=== PATIENT | female | born 1970 | race Caucasian/White ===

== ENCOUNTER → 2016-12-12 | Outpatient (CLI) | payer OTHER ==
--- NOTE | 2016-12-12 12:33 | KCIC ---
Bilateral digital screening mammograms: Reason for examination: Routine screening. Comparison is made to previous studies dated 11/18/2015 and 10/28/2014. The skin and nipples show no abnormalities. No abnormal axillary lymph nodes are seen. The breast parenchyma is heterogeneously dense. (Breast density: Category C.) There has been some parenchymal involution. There are no dominant masses, suspicious calcifications or architectural distortion. Impression: No evidence of malignancy. Recommend routine screening. Your patient's mammogram demonstrates that she has dense breast tissue (breast density category C or D), which could hide abnormalities, and if she has other risk factors for breast cancer that have been identified, she might benefit from supplemental screening tests that may be suggested by you as her ordering physician. Dense breast tissue, in and of itself, is a relatively common condition. Therefore, this information is not provided to cause undue concern, but rather to raise your awareness and to promote discussion with your patient regarding the presence of other risk factors, in addition to dense breast tissue. Your patient's mammography results will be sent to her. BI-RAD Category 1: Negative. "Our facility is accredited by the [employer] Mammography [employer]." This patient's information has been entered into a reminder system for the patient to be notified with the results of her examination and a target date for the next mammogram. Electronically signed by: Cat Mims MD (12/12/2016 12:29 PM)
== END | disposition home or self-care (01) ==
LOC: KCIC MAMMO 10:22
PROVIDERS: ATTEND Specialist
DX: Z12.31 Encounter for screening mammogram for malignant neoplasm of breast (principal)
CPT/HCPCS: G0202; 77067

== ENCOUNTER → 2018-02-05 | Outpatient (CLI) | payer OTHER ==
--- NOTE | 2018-02-05 13:13 | KCIC ---
Bilateral digital screening mammograms: Reason for examination: Routine screening. Comparison is made to previous studies dated 12/12/2016 and 11/18/2015. Interpretation was made with the benefit of CAD. The skin and nipples show no abnormalities. No abnormal axillary lymph nodes are seen. The breast parenchyma shows scattered fibroglandular density. (Breast density: Category B.) There is a new nodular density present posterior superiorly in the left breast on oblique view probably at the 2:00 C position measuring 5.8 mm in greatest dimension. Recommend further evaluation with coned compression views and ultrasound. There are no other dominant masses, suspicious calcifications or architectural distortions. Impression: Small 5.8 mm nodule present posterior superiorly in the left breast probably at the 2:00 C position. Recommend further evaluation with coned compression views and ultrasound. BI-RADS Category 0: Incomplete. Needs additional imaging evaluation. "Our facility is accredited by the [employer] Mammography [employer]." This patient's information has been entered into a reminder system for the patient to be notified with the results of her examination and a target date for the next mammogram. Electronically signed by: Cat Mims MD (02/05/2018 1:10 PM) [id number]
== END | disposition home or self-care (01) ==
LOC: KCIC MAMMO 08:21
PROVIDERS: ATTEND Specialist
DX: Z12.31 Encounter for screening mammogram for malignant neoplasm of breast (principal)
CPT/HCPCS: 77067

== ENCOUNTER → 2018-02-14 | Outpatient (CLI) | payer OTHER ==
--- NOTE | 2018-02-14 20:12 | KCIC ---
Left breast diagnostic digital mammograms: Reason for examination: Nodularity on screening mammogram. Comparison is made to mammographic exam dated 02/05/2018. Coned compression views were obtained in CC and oblique projections. With these additional views, there is still some subtle nodularity present at approximately the 2:00 position. Further evaluation with ultrasound will follow. IMPRESSION: Nodularity appears to persist at the 2:00 position. Ultrasound to follow. BI-RADS Category 0: Incomplete. Needs additional imaging evaluation. Left breast ultrasound: Ultrasound examination was performed in the area of mammographic concern and at the left axilla. In the 2:00 position 6 cm from the nipple, there is a small 7.3 x 5.3 mm fibrocystic lesion. In the 12:00 position 2 cm from the nipple, there is a 7.3 x 6.9 mm cyst. No solid suspicious-appearing lesions are seen. No abnormal appearing lymph nodes are seen in the axilla. IMPRESSION: Benign appearing fibrocystic lesion at the 2:00 position. Small cyst at the 12:00 position. No suspicious abnormality seen. Recommend 6 month sonographic follow-up. BI-RADS Category 3: Probably Benign. "Our facility is accredited by the [employer] Mamm[employer]." This patient's information has been entered into a reminder system for the patient to be notified with the results of her examination and a target date for the next mammogram. Electronically signed by: Cat Mims MD (02/14/2018 8:09 PM) [facility]
== END | disposition home or self-care (01) ==
LOC: KCIC MAMMO 12:45
PROVIDERS: ATTEND Specialist
DX: R92.8 Other abnormal and inconclusive findings on diagnostic imaging of breast (principal)
CPT/HCPCS: 76641; 77065

== ENCOUNTER → 2018-08-16 | Outpatient (CLI) | payer OTHER ==
--- NOTE | 2018-08-16 11:54 | KCIC ---
Left breast ultrasound: Reason for examination: Follow-up nodules. Comparison is made to previous study dated 02/14/2018. Ultrasound examination was performed in the areas of previous concern and axilla. There continues to be a 6 mm fibrocystic lesion at the 2:00 position 6 cm from the nipple which has shown a decrease in size. There continues to be a cyst at the 12:00 position 2 cm in size measuring 9 mm greatest dimension which is increased in size. No suspicious nodules are seen. No abnormal appearing lymph nodes are seen in the axilla. IMPRESSION: Decrease in size of the fibrocystic lesion at the 2:00 position. Mild increase in size of the cyst at the 12:00 position now measuring 9 mm in size. No suspicious-appearing lesion seen. Recommend reevaluation in 6 months at the time of bilateral mammograms. BI-RADS Category 3: Probably Benign. "Our facility is accredited by the [employer] Mammography [employer]." This patient's information has been entered into a reminder system for the patient to be notified with the results of her examination and a target date for the next mammogram. Electronically signed by: Cat Mims MD (08/16/2018 11:51 AM) [facility]
== END | disposition home or self-care (01) ==
LOC: KCIC US 11:03
PROVIDERS: ATTEND Specialist
DX: N64.89 Other specified disorders of breast (principal)
CPT/HCPCS: 76641

== ENCOUNTER → 2020-02-17 | Outpatient (CLI) | payer OTHER ==
--- NOTE | 2020-02-19 10:42 | KCIC ---
BILATERAL SCREENING MAMMOGRAM History: Routine screening. Comparison: Bilateral mammogram 02/14/2019 and 2018. Technique: Routine bilateral digital mammogram views were obtained. Findings: Breast Tissue Density B : There are scattered areas of fibroglandular density. Known small cyst in the left breast 12:00 position is identified on the CC view. There are no dominant masses, suspicious microcalcifications, or architectural distortion. IMPRESSION: No mammographic evidence of malignancy. Recommend routine screening. BI-RADS category 2: Benign findings. The images were reviewed with computer aided detection. Patient information is entered into the reminder system with a target due date for the next screening mammogram. Mammography is the most sensitive method for finding small breast cancers, but it does not detect them all and is not a substitute for careful clinical examination. A negative mammogram does not negate a clinically suspicious finding and should not result in delay in biopsying a clinically suspicious abnormality. "Our facility is accredited by the [employer] Mammography [employer]." Electronically signed by: Sergei Platt MD (02/19/2020 10:39 AM) [email or web address]
== END | disposition home or self-care (01) ==
LOC: KCIC MAMMO 12:26
PROVIDERS: ATTEND Specialist
DX: Z12.31 Encounter for screening mammogram for malignant neoplasm of breast (principal); N64.89 Other specified disorders of breast
CPT/HCPCS: 77067

== ENCOUNTER → 2021-02-17 | Outpatient (CLI) | payer OTHER ==
--- NOTE | 2021-02-18 16:19 | KCIC ---
Bilateral digital screening mammograms: Reason for examination: Routine screening. Comparison is made to previous study dated 02/14/2019 and 02/17/2020. Interpretation was made with the benefit of CAD. Findings: Breast density: There is heterogeneously dense fibroglandular tissue, which may obscure small masses. . There are no new suspicious masses, malignant appearing calcifications or architectural distortions. Impression: No evidence of malignancy. Assessment: BI-RADS Category 1: Negative. Recommendation: Routine screening mammograms. This patient's information has been entered into a reminder system for the patient to be notified wit h the results of her examination and a target date for the next mammogram. Your mammogram demonstrates that you have dense breast tissue, which could hide abnormalities, and if you have other risk factors for breast cancer that have been identified, you might benefit from supp lemental screening tests that may be suggested by your ordering physician. Dense breast tissue, in a nd of itself, is a relatively common condition. This information is not provided to cause undue conc krystian, but rather to raise your awareness and to promote discussion with your physician regarding the p resence of other risk factors, in addition to dense breast tissue. A report of your mammography resul ts will be sent to you and your physician. You should contact your physician if you have any questio ns or concerns regarding this report. Electronically signed by: Ester Webb MD (02/18/2021 4:16 PM) [email or web address]
== END ==
LOC: KCIC MAMMO 08:24
PROVIDERS: ATTEND Family Medicine
DX: Z12.31 Encounter for screening mammogram for malignant neoplasm of breast (principal)
CPT/HCPCS: 77067